=== PATIENT | female | born 1985 | race Caucasian/White ===

== ENCOUNTER 2017-12-17 09:57 | Emergency (ER) | END 2017-12-17 13:41 | disposition home or self-care (01) ==

== ENCOUNTER 2017-12-23 06:40 | Day surgery (SDC) | END 2017-12-23 11:02 | disposition home or self-care (01) ==

== ENCOUNTER 2018-11-29 15:48 | Inpatient (IN) | payer MEDICAID ==
[~2018-11-29] VITALS: Ht 160 cm; Wt 71.6 kg
[~2018-11-29 15:48] MED LIST: ACET500C5 PO
[2018-11-29 17:16] VITALS: Ht 160 cm; Wt 71.6 kg
[2018-11-29 17:17] VITALS: BP 119/81; PULSE 81; RESP 18
[2018-11-29] MEDS ORDERED: AL HYDROX/MG HYDROX/SIMETH 30 ML CUP PO PRN (19:30)
[2018-11-29] MEDS ORDERED: ACETAMINOPHEN 325 MG TAB PO PRN (19:30)
[2018-11-29] MEDS ORDERED: MAGNESIUM SULFATE 4 GM/100 ML 100 ML IV ONE (20:00)
[2018-11-29] MEDS: LACTATED RINGER'S 1,000 ML IV SCH (20:01)
--- NOTE | 2018-11-29 20:03 | HP ---
Date/Time of Note Date/Time of Note DATE: 11/29/18 TIME: 19:44 OB - History Hx of Present Free Text/Dictation 33 y.o here at triage with c/o vaginal spotting at 27w3d without any pelvic cramping pain. vaginal spotting which was pinkish only smear of pinkish discharge , but U/A shows ++2 blood and RBC 19 U/S revealed CVL is only 1.9 cx closed no funneling EFW 1033gm EDER 15.7cm admitted for preparation for possible PTB and also obtain consultation. Her care was initiated at 6w had unevenful course up to today. ADD HPV + 2007 Chief Complaint: vaaginal spotting ( hardly any) Estimated Due Date: Feb 25, 2019 : 3 Para: 1 Spontaneous : 1 Therapeutic : 0 Care: Good Care Ultrasounds: Normal mid trimester US Obstetrical Complications: None Medical Complications: None, Other (HPV pos) Past Family/Social History * Past Medical, Surgical, Family and Obstetric Histories reviewed from chart. Blood Type: A+ Rubella: immune GBS Status: Unknown HBsAG: Negative OB Admission Exam Vital Signs Vital Signs Vital Signs Date Temp Pulse Resp B/P (MAP) Pulse Ox O2 O2 Flow FiO2 Time Delivery Rate 11/29/18 98.9 81 18 119/81 Room Air 17:17 (94) Physical Exam HEENT: WNL Heart: Rhythm Normal Lungs: Clear, Equal Abdomen: WNL Extremities: Normal Reflexes: Normal Cervical Dilatation: other Effacement: Other Station: Other Membranes: Intact Amniotic Fluid: Unevaluable Heart Rate: 140's Accelerations: Accelerations Present Decelerations: No Decelerations Varibility: Moderate Contractions on Admission: None OB Assessment/Plan Other Assessment: A IUP 27w3d short cervix Hx of vaginal spotting P admit and as ordered Plan: Other (betamethasone x2 magnesium sulfate) OANH RAHMAN MD November 29, 2018 19:54
[2018-11-29] MEDS: MAGNESIUM SULFATE 20 GM/500 ML 500 ML IV SCH (20:41)
[2018-11-29] MEDS: BETAMET NA PHOS/AC(6 MG/ML) 2 ML INJ SYG IM SCH (22:48)
[2018-11-30] MEDS: LACTATED RINGER'S 1,000 ML IV SCH ×2 (07:20→19:24)
[2018-11-30] MEDS: MAGNESIUM SULFATE 20 GM/500 ML 500 ML IV SCH ×2 (07:21→17:42)
[2018-11-30] MEDS: PRENATAL VITAMIN PO SCH (09:03)
[2018-11-30] MEDS: BETAMET NA PHOS/AC(6 MG/ML) 2 ML INJ SYG IM SCH (23:22)
--- NOTE | 2018-12-01 02:17 | CONS ---
DATE OF ADMISSION: 11/29/2018 DATE OF CONSULTATION: 11/30/2018 HISTORY OF PRESENT ILLNESS: The patient is with intrauterine at 27 weeks and 4 days, prese nted with complaint of vaginal spotting which happened yesterday. Her cervical length was done and i t showed to be 1.9 cm. Currently, she is on magnesium sulfate, receiving betamethasone and she is co mfortable. This morning, one time she went to the restroom. After wiping, she had some pinkish stre aks the second time now. OBSTETRIC HISTORY: Not significant. She had a full term delivery of the first baby. PHYSICAL EXAMINATION: VITAL SIGNS: Stable. Physical exam deferred. DIAGNOSTIC DATA: Ultrasound shows no evidence of previa. Transvaginal cervical length is 1.9 cm. heart tones reassuring, irritability, no contractions. IMPRESSION: Intrauterine at 27 weeks and 4 days with labor on magnesium sulfate, r eceiving betamethasone, some spotting yesterday and some spotting today; after that, none. RECOMMENDATIONS: Continue with the magnesium sulfate 24 hours after the second dose of betamethasone , then discontinue. Follow the patient for possibly 1 more day and prior to discharging the patient, please have the patient walk bit to make sure that there is no evidence of bleeding and if all is st able, she can be discharged home with modified bed rest, labor precautions and pelvic rest an d after discharge, please send the patient to perinatology within 10 days of discharge for transvagin al cervical length. Dictated By: TEJAS NASH MD ST/NTS Conf#: [id number] DID#: [id number] CC: EDENILSON POWER MD;*EndCC*
[2018-12-01] MEDS: MAGNESIUM SULFATE 20 GM/500 ML 500 ML IV SCH ×2 (03:59→15:44)
[2018-12-01] MEDS: PRENATAL VITAMIN PO SCH (08:57)
[2018-12-01] MEDS ORDERED: DOCUSATE SODIUM 100 MG CAP PO SCH (09:00)
[2018-12-01] MEDS: LACTATED RINGER'S 1,000 ML IV SCH ×2 (15:41→23:27)
[2018-12-01] MEDS: DOCUSATE SODIUM 100 MG CAP PO SCH (21:11)
[2018-12-02] MEDS: MAGNESIUM SULFATE 20 GM/500 ML 500 ML IV SCH
[2018-12-02] MEDS: PRENATAL VITAMIN PO SCH (08:57)
[2018-12-02] MEDS: DOCUSATE SODIUM 100 MG CAP PO SCH (08:57)
--- NOTE | 2018-12-03 13:18 | DS ---
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
== END 2018-12-02 15:39 | disposition home or self-care (01) | DRG 833 ==
LOC: L-D 15:48 → OBT 15:48 → L-D 16:55 → OBT 19:26 → L-D 21:45 → PP1 12-02 00:10
PROVIDERS: ADMIT Obstetrics & Gynecology; ATTEND Obstetrics & Gynecology
DX: O26.872 Cervical shortening, second trimester (principal); O26.852 Spotting complicating pregnancy, second trimester; Z3A.27 27 weeks gestation of pregnancy
CPT/HCPCS: 76815; 76817; 76818; 80053; 81001; 83735; 85025; G0463; J0702; J3475; J7120

== ENCOUNTER 2019-02-19 08:05 | Inpatient (IN) | payer MEDICAID ==
[~2019-02-19] VITALS: Ht 162.6 cm; Wt 77.4 kg
[~2019-02-19 08:05] MED LIST changes: -ACET500C5 PO; +PREN-93 PO
[2019-02-19 08:32] VITALS: Ht 162.6 cm; Wt 77.4 kg
[2019-02-19 08:33] VITALS: BP 105/70; PULSE 80; RESP 18
--- NOTE | 2019-02-19 08:44 | PN ---
Triage Information Date/Time Reason for visit: SROM Weeks of Gestation 39.1 /Para 3/1 Objective Vital Signs Date Temp Pulse Resp B/P (MAP) Pulse Ox O2 O2 Flow FiO2 Time Delivery Rate 02/19/19 98.6 80 18 105/70 Room Air 08:33 (82) Assessment/Plan 33-year-old G3, P1 at 39 weeks and 1 day presents with complaints of leakage of fluid since 4 AM. Positive movement. 105/70 hr 82 Chronic monitor category 1 RN advised on ROM plus evaluation for leakage of fluid shift the ROM plus to be negative, the patient will be discharged home with follow-up for routine care on 02/20/2019. advised on kick counts, leakage of fluid and vaginal bleeding as well as decreased or absent movement MILESTONE,PRANAV GUAN Feb 19, 2019 08:44
--- NOTE | 2019-02-19 10:19 | TRIAGE ---
OB Triage Datetime Report Generated by CPN: 02/19/2019 10:18 Datetime: 02/19/2019 09:22 Vaginal Exam Membrane Status: Ruptured Datetime: 02/19/2019 08:57 Stage of : OB Triage Maternal Assessment Level of Consciousness: Keenly Alert, Responsive Labor Evaluation Frequency: 2UC Monitor Mode: External Duration (sec)2399: 80-160 Quality: Mild Resting Tone [place]: Relaxed Heart Rate FHR Baseline Rate: 135 Monitor Mode: External US Variability: Moderate 6-25 bpm Accelerations: 15X15 Decelerations: None Category: Category I Pain Assessment Pain Scale: 0 Pain Goal: 3 Vaginal Exam Membrane Status: Intact Vaginal Bleeding: None Datetime: 02/19/2019 08:29 Assessment Type: Triage Maternal Assessment Level of Consciousness: Keenly Alert, Responsive DTR's/Clonus: DTRs 2+; No Clonus Headache: Denies Blurred Vision: No Respiratory Effort: Unlabored; Regular Rhythm; Equal Expansion Breath Sounds, Left: Clear and Equal Breath Sounds, Right: Clear and Equal Nausea/Vomiting: Denies RUQ Epigastric Pain: Denies Lower Extremities Edema: None Degree: None Upper Extremities Edema: None Degree: None Facial Edema: None Fall Risk Assessment History of Falling: (0) No Secondary Diagnosis: (0) No Ambulatory Aid: (0) Bedrest/Nurse Assist IV Therapy: (0) No Gait: (0) Normal/Bedrest/Immobile Mental Status: (0) Oriented to Own Ability Fall Score: 0 Fall Risk Score Definition: No Risk: No action required Datetime: 02/19/2019 08:28 Time of Arrival: 02/19/2019 07:59 EGA: 39.1 Arrived By: Ambulatory Arrived From: Home Chief Complaint: pt. here C/O LEAKING X 1 OCCURENCE Movement: Present Contractions: Denies/Absent Rupture of Membranes: Denies Vaginal Bleeding: None Vaginal Discharge: Denies Recent Sexual Intercouse: Yes Abdominal Trauma: Not Applicable Patient Complaints: None Time Provider Notified: 02/19/2019 08:38 Provider Notified: MILESTONE Initial Plan: EFM/SVE Datetime: 12/02/2018 12:47 Maternal Assessment Level of Consciousness: Fully Conscious Headache: Denies Blurred Vision: No Respiratory Effort: Unlabored Nausea/Vomiting: Denies RUQ Epigastric Pain: Denies Resting Tone [place]: Relaxed Contraction Comments: none Pain Presence: None/Denies Vaginal Exam Membrane Status: Intact Vaginal Bleeding: None Datetime: 12/02/2018 12:00 Stage of : Antepartum Maternal Assessment Level of Consciousness: Fully Conscious Headache: Denies Nausea/Vomiting: Denies RUQ Epigastric Pain: Denies Labor Evaluation Frequency: 0/hr Monitor Mode: External Pain Presence: None/Denies Vaginal Bleeding: None Datetime: 12/02/2018 11:00 Stage of : Antepartum Maternal Assessment Level of Consciousness: Fully Conscious Headache: Denies Nausea/Vomiting: Denies RUQ Epigastric Pain: Denies Labor Evaluation Frequency: 0/hr Monitor Mode: External Comments: nst q shift 27.6 Pain Presence: None/Denies Vaginal Exam Membrane Status: Intact Vaginal Bleeding: None Datetime: 12/02/2018 10:10 Heart Rate FHR Baseline Rate: 130 Monitor Mode: External US Variability: Moderate 6-25 bpm Accelerations: 15X15 Decelerations: None Datetime: 12/02/2018 10:01 Labor Evaluation Frequency: 0/hr w/ irrit. Monitor Mode: External Resting Tone [place]: Relaxed Heart Rate FHR Baseline Rate: 125 Monitor Mode: External US Variability: Moderate 6-25 bpm Accelerations: 10X10 Comments: ega 27.6 Datetime: 12/02/2018 09:00 Stage of : Antepartum Maternal Assessment Level of Consciousness: Fully Conscious Headache: Denies Nausea/Vomiting: Denies RUQ Epigastric Pain: Denies Labor Evaluation Frequency: 0/hr Monitor Mode: External Resting Tone [place]: Relaxed Comments: ega 27.6 Pain Presence: None/Denies Vaginal Exam Membrane Status: Intact Vaginal Bleeding: None Datetime: 12/02/2018 08:49 Maternal Assessment Level of Consciousness: Fully Conscious Respiratory Effort: Unlabored Pain Presence: None/Denies Datetime: 12/02/2018 08:00 Stage of : Antepartum Maternal Assessment Level of Consciousness: Fully Conscious Headache: Denies Blurred Vision: No Respiratory Effort: Unlabored Nausea/Vomiting: Denies RUQ Epigastric Pain: Denies Temperature Route: Oral Resting Tone [place]: Relaxed Pain Presence: None/Denies Vaginal Exam Membrane Status: Intact Vaginal Bleeding: None Datetime: 12/02/2018 07:17 Stage of : Antepartum Monitor Mode: External Resting Tone [place]: Relaxed Pain Assessment Pain Scale: 0 Pain Presence: None/Denies Pain Assessment Comments: pt. denies any S_S of ptl at this time Datetime: 12/02/2018 07:15 Stage of : Antepartum Datetime: 12/02/2018 06:57 Labor Evaluation Frequency: NONE Monitor Mode: External Resting Tone [place]: Relaxed Pain Presence: None/Denies Pain Type: N/A Datetime: 12/02/2018 06:00 Labor Evaluation Frequency: NONE Monitor Mode: External Resting Tone [place]: Relaxed Pain Presence: None/Denies Pain Type: N/A Datetime: 12/02/2018 05:00 Labor Evaluation Frequency: NONE Monitor Mode: External Resting Tone [place]: Relaxed Pain Presence: None/Denies Pain Type: N/A Datetime: 12/02/2018 04:24 Stage of : Antepartum Temperature Route: Oral Pain Presence: None/Denies Pain Type: N/A Datetime: 12/02/2018 04:00 Labor Evaluation Frequency: NONE Monitor Mode: External Resting Tone [place]: Relaxed Pain Presence: None/Denies Pain Type: N/A Pain Assessment Comments: PT DENIES ANY NEEDS AT THIS TIME Datetime: 12/02/2018 03:00 Labor Evaluation Frequency: NONE Monitor Mode: External Resting Tone [place]: Relaxed Datetime: 12/02/2018 02:00 Labor Evaluation Frequency: NONE Monitor Mode: External Resting Tone [place]: Relaxed Pain Presence: None/Denies Pain Type: N/A Pain Assessment Comments: PT SLEEPING WITH EVEN UNLABORED BREATHING Datetime: 12/02/2018 01:00 Labor Evaluation Frequency: NONE Monitor Mode: External Resting Tone [place]: Relaxed Pain Presence: None/Denies Pain Type: N/A Datetime: 12/02/2018 00:11 Pain Presence: None/Denies Pain Assessment Comments: PT TRANSFERRED TO ROOM 310 B VIA W/C FROM LR12 IN L _ D. PT CARE ASSUMED . Datetime: 12/01/2018 23:50 Comments: Pt off monitor - Transfer to room 310. Datetime: 12/01/2018 23:45 Comments: US off - NST Q shift. Datetime: 12/01/2018 23:00 Stage of : Antepartum Labor Evaluation Frequency: None Monitor Mode: External Heart Rate FHR Baseline Rate: 120 Monitor Mode: External US FHR Baseline Changes: No Baseline Change Variability: Moderate 6-25 bpm Accelerations: 15X15 Decelerations: None Category: Category I Comments: WNL for GA Datetime: 12/01/2018 22:50 Monitor Mode: External US Datetime: 12/01/2018 22:00 Stage of : Antepartum Labor Evaluation Frequency: None Monitor Mode: External Heart Rate FHR Baseline Rate: 120 Monitor Mode: External US FHR Baseline Changes: No Baseline Change Variability: Moderate 6-25 bpm Accelerations: 15X15 Decelerations: None Category: Category I Comments: WNL for GA Datetime: 12/01/2018 21:00 Stage of : Antepartum Labor Evaluation Frequency: None Monitor Mode: External Heart Rate FHR Baseline Rate: 120 Monitor Mode: External US FHR Baseline Changes: No Baseline Change Variability: Moderate 6-25 bpm Accelerations: 15X15 Decelerations: None Comments: WNL for GA Datetime: 12/01/2018 20:20 Stage of : Antepartum Datetime: 12/01/2018 20:12 Monitor Mode: External US Datetime: 12/01/2018 20:00 Stage of : Antepartum Labor Evaluation Frequency: None Monitor Mode: External Heart Rate FHR Baseline Rate: 120 Monitor Mode: External US FHR Baseline Changes: No Baseline Change Variability: Moderate 6-25 bpm Accelerations: 15X15 Decelerations: None Category: Category I Comments: WNL for GA Datetime: 12/01/2018 19:32 Stage of : Antepartum Assessment Type: Ongoing Assessment Maternal Assessment Level of Consciousness: Fully Conscious DTR's/Clonus: DTRs 2+; No Clonus Headache: Denies Blurred Vision: No Respiratory Effort: Unlabored; Regular Rhythm; Equal Expansion Breath Sounds, Left: Clear and Equal Breath Sounds, Right: Clear and Equal Nausea/Vomiting: Denies RUQ Epigastric Pain: Denies Lower Extremities Edema: None Degree: None Upper Extremities Edema: None Degree: None Facial Edema: None Temperature Route: Oral Fall Risk Assessment History of Falling: (0) No Secondary Diagnosis: (0) No Ambulatory Aid: (0) Bedrest/Nurse Assist IV Therapy: (0) No Gait: (0) Normal/Bedrest/Immobile Mental Status: (0) Oriented to Own Ability Fall Score: 0 Fall Risk Score Definition: No Risk: No action required Datetime: 12/01/2018 19:31 Monitor Mode: External US Datetime: 12/01/2018 19:00 Stage of : Antepartum Labor Evaluation Frequency: 0 Monitor Mode: External Resting Tone [place]: Relaxed Heart Rate FHR Baseline Rate: 120 Monitor Mode: External US FHR Baseline Changes: No Baseline Change Variability: Moderate 6-25 bpm Accelerations: 10X10 Decelerations: None Category: Category I Pain Assessment Pain Scale: 0 Pain Presence: None/Denies Pain Type: N/A Datetime: 12/01/2018 18:02 Stage of : Antepartum Labor Evaluation Frequency: 0 Monitor Mode: External Resting Tone [place]: Relaxed Heart Rate FHR Baseline Rate: 120 Monitor Mode: External US FHR Baseline Changes: No Baseline Change Variability: Moderate 6-25 bpm Accelerations: 10X10 Decelerations: None Category: Category I Pain Assessment Pain Scale: 0 Pain Presence: None/Denies Pain Type: N/A Datetime: 12/01/2018 17:00 Stage of : Antepartum Maternal Assessment Level of Consciousness: Fully Conscious DTR's/Clonus: DTRs 2+; No Clonus Headache: Denies Breath Sounds, Left: Clear and Equal Breath Sounds, Right: Clear and Equal Nausea/Vomiting: Denies RUQ Epigastric Pain: Denies Labor Evaluation Frequency: 0 Monitor Mode: External Resting Tone [place]: Relaxed Heart Rate FHR Baseline Rate: 120 Monitor Mode: External US FHR Baseline Changes: No Baseline Change Variability: Moderate 6-25 bpm Accelerations: 10X10 Decelerations: None Category: Category I Pain Assessment Pain Scale: 0 Pain Presence: None/Denies Pain Type: N/A Datetime: 12/01/2018 16:00 Stage of : Antepartum Labor Evaluation Frequency: 0 Monitor Mode: External Resting Tone [place]: Relaxed Heart Rate FHR Baseline Rate: 120 Monitor Mode: External US FHR Baseline Changes: No Baseline Change Variability: Moderate 6-25 bpm Accelerations: 10X10 Decelerations: None Category: Category I Pain Assessment Pain Scale: 0 Pain Presence: None/Denies Pain Type: N/A Datetime: 12/01/2018 15:00 Stage of : Antepartum Labor Evaluation Frequency: 0 Monitor Mode: External Resting Tone [place]: Relaxed Heart Rate FHR Baseline Rate: 120 Monitor Mode: External US FHR Baseline Changes: No Baseline Change Variability: Moderate 6-25 bpm Accelerations: 10X10 Decelerations: None Category: Category I Pain Assessment Pain Scale: 0 Pain Presence: None/Denies Pain Type: N/A Datetime: 12/01/2018 13:55 Monitor Mode: External Resting Tone [place]: Relaxed Contraction Comments: uterine irritability noted per toco Heart Rate FHR Baseline Rate: 120 Monitor Mode: External US FHR Baseline Changes: No Baseline Change Variability: Moderate 6-25 bpm Accelerations: 10X10 Decelerations: None Category: Category I Datetime: 12/01/2018 13:00 Stage of : Antepartum Maternal Assessment Level of Consciousness: Fully Conscious DTR's/Clonus: DTRs 2+; No Clonus Headache: Denies Breath Sounds, Left: Clear and Equal Breath Sounds, Right: Clear and Equal Nausea/Vomiting: Denies RUQ Epigastric Pain: Denies Labor Evaluation Frequency: 0 Monitor Mode: External Resting Tone [place]: Relaxed Heart Rate FHR Baseline Rate: 120 Monitor Mode: External US FHR Baseline Changes: No Baseline Change Variability: Moderate 6-25 bpm Accelerations: 10X10 Decelerations: None Category: Category I Pain Assessment Pain Scale: 0 Pain Presence: None/Denies Pain Type: N/A Datetime: 12/01/2018 12:00 Stage of : Antepartum Labor Evaluation Frequency: 0 Monitor Mode: External Resting Tone [place]: Relaxed Contraction Comments: pt denies feeling ctx's Heart Rate FHR Baseline Rate: 120 Monitor Mode: External US FHR Baseline Changes: No Baseline Change Variability: Moderate 6-25 bpm Accelerations: 10X10 Decelerations: None Category: Category I Pain Assessment Pain Scale: 0 Pain Presence: None/Denies Pain Type: N/A Datetime: 12/01/2018 11:00 Stage of : Antepartum Labor Evaluation Frequency: 0 Monitor Mode: External Resting Tone [place]: Relaxed Heart Rate FHR Baseline Rate: 120 Monitor Mode: External US FHR Baseline Changes: No Baseline Change Variability: Moderate 6-25 bpm Accelerations: 10X10 Decelerations: None Category: Category I Pain Assessment Pain Scale: 0 Pain Presence: None/Denies Pain Type: N/A Datetime: 12/01/2018 10:28 Stage of : Antepartum Maternal Assessment Level of Consciousness: Fully Conscious DTR's/Clonus: DTRs 2+; No Clonus Headache: Denies Breath Sounds, Left: Clear and Equal Breath Sounds, Right: Clear and Equal Nausea/Vomiting: Denies RUQ Epigastric Pain: Denies Datetime: 12/01/2018 10:00 Stage of : Antepartum Labor Evaluation Frequency: 0 Monitor Mode: External Resting Tone [place]: Relaxed Heart Rate FHR Baseline Rate: 120 Monitor Mode: External US FHR Baseline Changes: No Baseline Change Variability: Moderate 6-25 bpm Accelerations: 10X10 Decelerations: None Category: Category I Pain Assessment Pain Scale: 0 Pain Presence: None/Denies Pain Type: N/A Datetime: 12/01/2018 09:00 Stage of : Antepartum Labor Evaluation Frequency: 0 Monitor Mode: External Resting Tone [place]: Relaxed Contraction Comments: pt denies feeling ctx's Heart Rate FHR Baseline Rate: 120 Monitor Mode: External US Variability: Moderate 6-25 bpm Accelerations: None Decelerations: None Category: Category I Datetime: 12/01/2018 08:00 Stage of : Antepartum Monitor Mode: External Resting Tone [place]: Relaxed Contraction Comments: uterine irritability noted Heart Rate FHR Baseline Rate: 120 Monitor Mode: External US Variability: Moderate 6-25 bpm Accelerations: 15X15 Decelerations: None Category: Category I Datetime: 12/01/2018 07:22 Stage of : Antepartum Assessment Type: Ongoing Assessment Maternal Assessment Level of Consciousness: Fully Conscious DTR's/Clonus: DTRs 2+; No Clonus Headache: Denies Blurred Vision: No Respiratory Effort: Unlabored; Regular Rhythm; Equal Expansion Breath Sounds, Left: Clear and Equal Breath Sounds, Right: Clear and Equal Nausea/Vomiting: Denies RUQ Epigastric Pain: Denies Lower Extremities Edema: None Degree: None Upper Extremities Edema: None Degree: None Facial Edema: None Temperature Route: Oral Fall Risk Assessment History of Falling: (0) No Secondary Diagnosis: (0) No Ambulatory Aid: (0) Bedrest/Nurse Assist IV Therapy: (20) Yes Gait: (0) Normal/Bedrest/Immobile Mental Status: (0) Oriented to Own Ability Fall Score: 20 Fall Risk Score Definition: No Risk: No action required Monitor Mode: External Monitor Mode: External US Pain Assessment Pain Scale: 0 Pain Presence: None/Denies Pain Type: N/A Pain Goal: 0 Datetime: 12/01/2018 07:00 Labor Evaluation Frequency: IRRITABILITY Monitor Mode: External Resting Tone [place]: Relaxed Heart Rate FHR Baseline Rate: 115 Monitor Mode: External US Variability: Moderate 6-25 bpm Accelerations: 15X15 Decelerations: None Datetime: 12/01/2018 06:00 Labor Evaluation Frequency: IRRITABILITY Monitor Mode: External Quality: Moderate Resting Tone [place]: Relaxed Heart Rate FHR Baseline Rate: 115 Monitor Mode: External US Variability: Moderate 6-25 bpm Accelerations: 15X15 Decelerations: None Category: Category I Datetime: 12/01/2018 05:00 Labor Evaluation Frequency: IRRITABILITY Monitor Mode: External Quality: Mild Resting Tone [place]: Relaxed Heart Rate FHR Baseline Rate: 115 Monitor Mode: External US Variability: Moderate 6-25 bpm Accelerations: 15X15 Decelerations: None Category: Category I Datetime: 12/01/2018 04:28 Stage of : Antepartum Temperature Route: Oral Datetime: 12/01/2018 04:00 Labor Evaluation Frequency: NONE Monitor Mode: External Resting Tone [place]: Relaxed Heart Rate FHR Baseline Rate: 115 Monitor Mode: External US Variability: Moderate 6-25 bpm Accelerations: 15X15 Decelerations: None Category: Category I Datetime: 12/01/2018 03:00 Labor Evaluation Frequency: NONE Monitor Mode: External Resting Tone [place]: Relaxed Heart Rate FHR Baseline Rate: 115 Monitor Mode: External US Variability: Moderate 6-25 bpm Accelerations: 15X15 Decelerations: None Datetime: 12/01/2018 02:00 Labor Evaluation Frequency: NONE Monitor Mode: External Resting Tone [place]: Relaxed Heart Rate FHR Baseline Rate: 115 Monitor Mode: External US Variability: Moderate 6-25 bpm Accelerations: 15X15 Decelerations: None Comments: SOME LOSS OF CONTACT DUE TO PT TURNING TO SIDE TO SLEEP Datetime: 12/01/2018 01:00 Labor Evaluation Frequency: IRRITABILITY Monitor Mode: External Quality: Mild Resting Tone [place]: Relaxed Heart Rate FHR Baseline Rate: 115 Monitor Mode: External US Variability: Moderate 6-25 bpm Accelerations: 15X15 Decelerations: None Datetime: 12/01/2018 00:22 Temperature Route: Oral Datetime: 12/01/2018 00:00 Labor Evaluation Frequency: IRRITABILITY Monitor Mode: External Quality: Mild Resting Tone [place]: Relaxed Heart Rate FHR Baseline Rate: 115 Monitor Mode: External US Variability: Moderate 6-25 bpm Accelerations: 15X15 Decelerations: None Datetime: 11/30/2018 23:00 Labor Evaluation Frequency: X2 IN ONE HOUR Monitor Mode: External Quality: Mild Resting Tone [place]: Relaxed Heart Rate FHR Baseline Rate: 120 Monitor Mode: External US Variability: Moderate 6-25 bpm Accelerations: 15X15 Decelerations: None Category: Category I Datetime: 11/30/2018 22:00 Labor Evaluation Frequency: IRRITABILITY NOTED Monitor Mode: External Quality: Mild Heart Rate FHR Baseline Rate: 120 Monitor Mode: External US Variability: Moderate 6-25 bpm Accelerations: 15X15 Decelerations: None Category: Category I Datetime: 11/30/2018 21:00 Labor Evaluation Frequency: NONE Monitor Mode: External Resting Tone [place]: Relaxed Heart Rate FHR Baseline Rate: 120 Monitor Mode: External US Variability: Moderate 6-25 bpm Accelerations: 15X15 Decelerations: None Category: Category I Datetime: 11/30/2018 20:00 Labor Evaluation Frequency: X2 IN ONE HOUR; IRRITABILITY ALSO NOTED Monitor Mode: External Duration (sec)2399: 60-90 Quality: Mild Resting Tone [place]: Relaxed Contraction Comments: PT DENIES FEELING UC'S Heart Rate FHR Baseline Rate: 115 Monitor Mode: External US Variability: Moderate 6-25 bpm Accelerations: 15X15 Decelerations: None Datetime: 11/30/2018 19:26 Assessment Type: Ongoing Assessment Maternal Assessment Level of Consciousness: Fully Conscious DTR's/Clonus: DTRs 2+; No Clonus Headache: Denies Blurred Vision: No Respiratory Effort: Unlabored; Regular Rhythm; Equal Expansion Breath Sounds, Left: Clear and Equal Breath Sounds, Right: Clear and Equal Nausea/Vomiting: Denies RUQ Epigastric Pain: Denies Lower Extremities Edema: None Degree: None Upper Extremities Edema: None Degree: None Facial Edema: None Temperature Route: Oral Fall Risk Assessment History of Falling: (0) No Secondary Diagnosis: (0) No Ambulatory Aid: (0) Bedrest/Nurse Assist IV Therapy: (20) Yes Gait: (0) Normal/Bedrest/Immobile Mental Status: (0) Oriented to Own Ability Fall Score: 20 Fall Risk Score Definition: No Risk: No action required Pain Assessment Pain Scale: 0 Pain Presence: None/Denies Pain Type: N/A Pain Goal: 3 Datetime: 11/30/2018 18:30 Labor Evaluation Frequency: x1 Monitor Mode: External Duration (sec)2399: 50 Quality: Mild Resting Tone [place]: Relaxed Heart Rate FHR Baseline Rate: 120 Monitor Mode: External US FHR Baseline Changes: No Baseline Change Variability: Moderate 6-25 bpm Accelerations: 15X15 Decelerations: None Category: Category I Datetime: 11/30/2018 17:31 Assessment Type: Ongoing Assessment Maternal Assessment Level of Consciousness: Fully Conscious DTR's/Clonus: DTRs 2+; No Clonus Headache: Denies Blurred Vision: No Labor Evaluation Frequency: none Monitor Mode: External Resting Tone [place]: Relaxed Heart Rate FHR Baseline Rate: 120 Monitor Mode: External US FHR Baseline Changes: No Baseline Change Variability: Moderate 6-25 bpm Accelerations: 15X15 Decelerations: None Category: Category I Datetime: 11/30/2018 16:30 Labor Evaluation Frequency: x1 Monitor Mode: External Duration (sec)2399: 70 Quality: Mild Resting Tone [place]: Relaxed Heart Rate FHR Baseline Rate: 120 Monitor Mode: External US FHR Baseline Changes: No Baseline Change Variability: Minimal - Undetectable to <=5 bpm Accelerations: 15X15 Decelerations: None Category: Category II Datetime: 11/30/2018 16:28 Pain Assessment Pain Scale: 0 Pain Presence: None/Denies Pain Type: N/A Datetime: 11/30/2018 15:30 Assessment Type: Ongoing Assessment Maternal Assessment Level of Consciousness: Fully Conscious DTR's/Clonus: DTRs 2+; No Clonus Headache: Denies Blurred Vision: No Respiratory Effort: Unlabored Breath Sounds, Left: Clear and Equal Breath Sounds, Right: Clear and Equal Labor Evaluation Frequency: x1 Monitor Mode: External Duration (sec)2399: 60 Quality: Mild Resting Tone [place]: Relaxed Contraction Comments: uterine irritability noted Heart Rate FHR Baseline Rate: 120 Monitor Mode: External US FHR Baseline Changes: No Baseline Change Variability: Moderate 6-25 bpm Accelerations: 15X15 Decelerations: None Category: Category I Datetime: 11/30/2018 14:30 Labor Evaluation Frequency: x1 Monitor Mode: External Duration (sec)2399: 50 Quality: Mild Resting Tone [place]: Relaxed Heart Rate FHR Baseline Rate: 115 Monitor Mode: External US FHR Baseline Changes: No Baseline Change Variability: Moderate 6-25 bpm Accelerations: 15X15 Decelerations: None Category: Category I Datetime: 11/30/2018 13:30 Assessment Type: Ongoing Assessment Maternal Assessment Level of Consciousness: Fully Conscious DTR's/Clonus: DTRs 2+; No Clonus Headache: Denies Blurred Vision: No Labor Evaluation Frequency: x1 Monitor Mode: External Duration (sec)2399: 60 Quality: Mild Resting Tone [place]: Relaxed Heart Rate FHR Baseline Rate: 115 Monitor Mode: External US FHR Baseline Changes: No Baseline Change Variability: Moderate 6-25 bpm Accelerations: 15X15 Decelerations: Variable Category: Category II Datetime: 11/30/2018 12:30 Labor Evaluation Frequency: x1 Monitor Mode: External Duration (sec)2399: 60 Quality: Mild Resting Tone [place]: Relaxed Contraction Comments: uterine irritability noted Heart Rate FHR Baseline Rate: 120 Monitor Mode: External US FHR Baseline Changes: No Baseline Change Variability: Moderate 6-25 bpm Accelerations: 15X15 Decelerations: None Category: Category I Datetime: 11/30/2018 11:33 Pain Assessment Pain Scale: 0 Pain Presence: None/Denies Pain Type: N/A Datetime: 11/30/2018 11:31 Assessment Type: Ongoing Assessment Maternal Assessment Level of Consciousness: Fully Conscious DTR's/Clonus: DTRs 2+; No Clonus Headache: Denies Blurred Vision: No Respiratory Effort: Unlabored Breath Sounds, Left: Clear and Equal Breath Sounds, Right: Clear and Equal Labor Evaluation Frequency: x1 Monitor Mode: External Duration (sec)2399: 70 Quality: Mild Resting Tone [place]: Relaxed Contraction Comments: uterine irritability noted Heart Rate FHR Baseline Rate: 120 Monitor Mode: External US FHR Baseline Changes: No Baseline Change Variability: Minimal - Undetectable to <=5 bpm Accelerations: Prolonged Decelerations: None Category: Category II Datetime: 11/30/2018 10:27 Labor Evaluation Frequency: none Monitor Mode: External Resting Tone [place]: Relaxed Contraction Comments: uterine irritability noted Heart Rate FHR Baseline Rate: 120 Monitor Mode: External US FHR Baseline Changes: No Baseline Change Variability: Minimal - Undetectable to <=5 bpm Accelerations: 15X15 Decelerations: None Category: Category II Datetime: 11/30/2018 10:00 Assessment Type: Ongoing Assessment Maternal Assessment Level of Consciousness: Fully Conscious DTR's/Clonus: DTRs 2+; No Clonus Headache: Denies Blurred Vision: No Datetime: 11/30/2018 09:30 Labor Evaluation Frequency: x1 Monitor Mode: External Duration (sec)2399: 50 Quality: Mild Resting Tone [place]: Relaxed Heart Rate FHR Baseline Rate: 120 Monitor Mode: External US FHR Baseline Changes: No Baseline Change Variability: Minimal - Undetectable to <=5 bpm Accelerations: 15X15 Decelerations: Variable Category: Category II Datetime: 11/30/2018 08:30 Labor Evaluation Frequency: x2 Monitor Mode: External Duration (sec)2399: 60 Quality: Mild Resting Tone [place]: Relaxed Contraction Comments: pt denies feeling UCs, uterine irritability Heart Rate FHR Baseline Rate: 125 Monitor Mode: External US FHR Baseline Changes: No Baseline Change Variability: Moderate 6-25 bpm Accelerations: 15X15 Decelerations: None Category: Category I Datetime: 11/30/2018 08:00 Assessment Type: Ongoing Assessment Maternal Assessment Level of Consciousness: Fully Conscious DTR's/Clonus: DTRs 2+; No Clonus Headache: Denies Blurred Vision: No Respiratory Effort: Unlabored; Regular Rhythm; Equal Expansion Breath Sounds, Left: Clear and Equal Breath Sounds, Right: Clear and Equal Nausea/Vomiting: Denies RUQ Epigastric Pain: Denies Lower Extremities Edema: None Degree: None Upper Extremities Edema: None Degree: None Facial Edema: None Fall Risk Assessment History of Falling: (0) No Secondary Diagnosis: (0) No Ambulatory Aid: (0) Bedrest/Nurse Assist IV Therapy: (20) Yes Gait: (0) Normal/Bedrest/Immobile Mental Status: (0) Oriented to Own Ability Fall Score: 20 Fall Risk Score Definition: No Risk: No action required Datetime: 11/30/2018 07:30 Labor Evaluation Frequency: none Monitor Mode: External Resting Tone [place]: Relaxed Contraction Comments: uterine irritability noted Heart Rate FHR Baseline Rate: 130 Monitor Mode: External US FHR Baseline Changes: No Baseline Change Variability: Moderate 6-25 bpm Accelerations: Prolonged Decelerations: None Category: Category I Datetime: 11/30/2018 07:15 Pain Assessment Pain Scale: 0 Pain Presence: None/Denies Pain Type: N/A Datetime: 11/30/2018 07:14 Stage of : Antepartum Datetime: 11/30/2018 06:46 Labor Evaluation Frequency: occasional Monitor Mode: External Duration (sec)2399: 30-40 Quality: Mild Pattern: Normal: <= 5 Contractions in 10 Minutes Resting Tone [place]: Relaxed Heart Rate FHR Baseline Rate: 135 Monitor Mode: External US FHR Baseline Changes: No Baseline Change Variability: Moderate 6-25 bpm Accelerations: 15X15 Decelerations: None Category: Category I Datetime: 11/30/2018 05:58 Labor Evaluation Frequency: irritability Monitor Mode: External Duration (sec)2399: 30-40 Quality: Mild Pattern: Normal: <= 5 Contractions in 10 Minutes Resting Tone [place]: Relaxed Heart Rate FHR Baseline Rate: 125 Monitor Mode: External US FHR Baseline Changes: No Baseline Change Variability: Moderate 6-25 bpm Accelerations: 15X15 Decelerations: None Category: Category I Datetime: 11/30/2018 04:59 Labor Evaluation Frequency: NONE Monitor Mode: External Resting Tone [place]: Relaxed Heart Rate FHR Baseline Rate: 120 Monitor Mode: External US Variability: Moderate 6-25 bpm Accelerations: 10X10 Decelerations: None Datetime: 11/30/2018 04:00 Labor Evaluation Frequency: X1 IN ONE HOUR Monitor Mode: External Duration (sec)2399: 100 Quality: Mild Resting Tone [place]: Relaxed Contraction Comments: PT DENIES FEELING UC'S Heart Rate FHR Baseline Rate: 125 Monitor Mode: External US Variability: Moderate 6-25 bpm Accelerations: 15X15 Decelerations: None Datetime: 11/30/2018 03:13 Labor Evaluation Frequency: LOW AMPLITUDE HIGH FREQUENCY Monitor Mode: External Resting Tone [place]: Relaxed Heart Rate FHR Baseline Rate: 125 Monitor Mode: External US Variability: Marked >25 bpm Accelerations: 10X10 Decelerations: None Datetime: 11/30/2018 02:00 Labor Evaluation Frequency: none Monitor Mode: External Resting Tone [place]: Relaxed Heart Rate FHR Baseline Rate: 125 Monitor Mode: External US Variability: Moderate 6-25 bpm Accelerations: 10X10 Decelerations: None Datetime: 11/30/2018 01:00 Labor Evaluation Frequency: none Monitor Mode: External Quality: Mild Pattern: Normal: <= 5 Contractions in 10 Minutes Resting Tone [place]: Relaxed Heart Rate FHR Baseline Rate: 135 Monitor Mode: External US FHR Baseline Changes: No Baseline Change Variability: Moderate 6-25 bpm Accelerations: 15X15 Decelerations: None Category: Category I Datetime: 11/30/2018 00:00 Labor Evaluation Frequency: occasional Monitor Mode: External Quality: Mild Pattern: Normal: <= 5 Contractions in 10 Minutes Resting Tone [place]: Relaxed Heart Rate FHR Baseline Rate: 125 Monitor Mode: External US FHR Baseline Changes: No Baseline Change Variability: Moderate 6-25 bpm Accelerations: 15X15 Decelerations: None Category: Category I Datetime: 11/29/2018 22:59 Labor Evaluation Frequency: irritability Monitor Mode: External Duration (sec)2399: 20-50 Quality: Mild Pattern: Normal: <= 5 Contractions in 10 Minutes Resting Tone [place]: Relaxed Heart Rate FHR Baseline Rate: 125 Monitor Mode: External US FHR Baseline Changes: No Baseline Change Variability: Moderate 6-25 bpm Accelerations: 15X15 Decelerations: None Category: Category I Datetime: 11/29/2018 22:28 Temperature Route: Oral Datetime: 11/29/2018 22:00 Labor Evaluation Frequency: irritability Monitor Mode: External Duration (sec)2399: 30-40 Quality: Mild Pattern: Normal: <= 5 Contractions in 10 Minutes Resting Tone [place]: Relaxed Heart Rate FHR Baseline Rate: 135 Monitor Mode: External US FHR Baseline Changes: No Baseline Change Variability: Moderate 6-25 bpm Accelerations: 15X15 Decelerations: None Category: Category I Datetime: 11/29/2018 21:30 Assessment Type: Admission Assessment Vaginal Bleeding: None Maternal Assessment Level of Consciousness: Fully Conscious DTR's/Clonus: DTRs 2+; No Clonus Headache: Denies Blurred Vision: No Respiratory Effort: Unlabored; Regular Rhythm; Equal Expansion Breath Sounds, Left: Clear and Equal Breath Sounds, Right: Clear and Equal Nausea/Vomiting: Denies RUQ Epigastric Pain: Denies Facial Edema: None Fall Risk Assessment History of Falling: (0) No Secondary Diagnosis: (0) No Ambulatory Aid: (0) Bedrest/Nurse Assist Gait: (0) Normal/Bedrest/Immobile Mental Status: (0) Oriented to Own Ability Datetime: 11/29/2018 21:00 Labor Evaluation Frequency: x2 with irriability Monitor Mode: External Duration (sec)2399: 30-70 Quality: Mild Pattern: Normal: <= 5 Contractions in 10 Minutes Resting Tone [place]: Relaxed Heart Rate FHR Baseline Rate: 135 Monitor Mode: External US FHR Baseline Changes: No Baseline Change Variability: Moderate 6-25 bpm Accelerations: 15X15 Decelerations: None Category: Category I Datetime: 11/29/2018 20:00 Labor Evaluation Frequency: x1 with irritability Monitor Mode: External Duration (sec)2399: 40-70 Quality: Mild Pattern: Normal: <= 5 Contractions in 10 Minutes Resting Tone [place]: Relaxed Heart Rate FHR Baseline Rate: 135 Monitor Mode: External US FHR Baseline Changes: No Baseline Change Variability: Moderate 6-25 bpm Accelerations: 15X15 Decelerations: Variable Category: Category II Datetime: 11/29/2018 19:28 Vaginal Exam Membrane Status: Intact Datetime: 11/29/2018 18:50 Labor Evaluation Frequency: 0 Monitor Mode: External Pattern: Normal: <= 5 Contractions in 10 Minutes Resting Tone [place]: Relaxed Heart Rate FHR Baseline Rate: 140 Monitor Mode: External US Variability: Moderate 6-25 bpm Accelerations: 15X15 Decelerations: None Category: Category I Datetime: 11/29/2018 17:10 Stage of : OB Triage Time of Arrival: 11/29/2018 15:29 EGA: 27.3 Arrived By: Ambulatory Arrived From: Home Chief Complaint: pinkish discharge x1 post voiding on toilet paper Movement: Present Contractions: Denies/Absent Rupture of Membranes: Denies Vaginal Bleeding: Scant Vaginal Discharge: Present Recent Sexual Intercouse: Denies Abdominal Trauma: Not Applicable Patient Complaints: Cramping Initial Plan: efm/ BPP Maternal Assessment Level of Consciousness: Fully Conscious DTR's/Clonus: DTRs 2+; No Clonus Headache: Denies Blurred Vision: No Respiratory Effort: Unlabored; Regular Rhythm; Equal Expansion Nausea/Vomiting: Denies RUQ Epigastric Pain: Denies Lower Extremities Edema: None Degree: None Upper Extremities Edema: None Degree: None Facial Edema: None Temperature Route: Oral Fall Risk Assessment History of Falling: (0) No Secondary Diagnosis: (0) No Ambulatory Aid: (0) Bedrest/Nurse Assist IV Therapy: (0) No Gait: (0) Normal/Bedrest/Immobile Mental Status: (0) Oriented to Own Ability Fall Score: 0 Fall Risk Score Definition: No Risk: No action required Monitor Mode: External Heart Rate FHR Baseline Rate: 135 Monitor Mode: External US Pain Assessment Pain Scale: 0
--- NOTE | 2019-02-19 11:20 | HP ---
Date/Time of Note Date/Time of Note DATE: 02/19/19 TIME: 11:20 OB - History Hx of Present Free Text/Dictation History of present illness: 33-year-old G 3 P 1 at 39 week and 1 day(s) presents with plaints of leakage of fluid since 4 AM. Obstetric history: Vaginal delivery in 2007 Gynecology: Last menstrual period approximately 05/21/2018 Past medical history: HPV Surgical history: D&C 2017 Family history: Noncontributory Social history: negative for tobacco/alcohol/recreational drugs Allergies: No known drug allergies Medications: vitamins Physical exam Vitals: Stable 105/70 General: No apparent distress Cardiovascular: Regular rate and rhythm Pulmonary: Clear to auscultation bilaterally Abdomen: Gravid SVE: 2/50/floating/mid/med; cord present on right maternal Uterus: Maury's 3200 g vertex by ultrasound and leopolds Extremities: Nontender to palpation Psychological: Alert oriented EFM: Category 1 [place]: None labs: Blood type: A+ H/H: Rubella: immune HepBSAg: nonreactive RPR: NR HIV: negative GC/CT: negative GBS: negative 1h GTT: normal 83 Assessment/plan: 1. Premature rupture of membranes-admit to labor and delivery. Routine labs and vitals. Epidural upon patient request. Ultrasound with evidence of vertex presentation. Initially during her exam there was a palpable cord lateral to the head upon exam maternal right. The patient was placed in Trendelenburg with subsequent resolution of the presenting part noted by ultrasound. 2. History of short cervix-The patient was previously admitted in November 2018 for s hort cervix and received magnesium sulfate as well as corticosteroids. Past Family/Social History * Past Medical, Surgical, Family and Obstetric Histories reviewed from chart. OB Admission Exam Vital Signs Vital Signs Vital Signs Date Temp Pulse Resp B/P (MAP) Pulse Ox O2 O2 Flow FiO2 Time Delivery Rate 02/19/19 98.6 80 18 105/70 Room Air 08:33 (82) PRANAV ESPARZA MD Feb 19, 2019 11:20
[2019-02-19] MEDS ORDERED: METHYLERGONOVINE 0.2 MG INJ IM PRN (11:30)
[2019-02-19] MEDS ORDERED: CARBOPROST 250 MCG INJ IM PRN (11:30)
[2019-02-19] MEDS ORDERED: MISOPROSTOL 200 MCG TAB PR PRN (11:30)
[2019-02-19] MEDS ORDERED: OXYTOCIN 30 UNITS/LR 500 ML IV SCH ×3 (11:30)
[2019-02-19] MEDS ORDERED: OXYTOCIN 30 UNITS/LR 500 ML IV PRN (11:30)
[2019-02-19] MEDS ORDERED: LIDOCAINE 1% (MPF) 30 ML INJ INJ PRN (11:30)
[2019-02-19] MEDS ORDERED: MISOPROSTOL 50 MCG CAPSULE PO ONE (11:30)
[2019-02-19] MEDS ORDERED: MISOPROSTOL 50 MCG CAPSULE PO SCH ×2 (12:00→21:00)
[2019-02-19] MEDS: LACTATED RINGER'S 1,000 ML IV SCH (12:17)
[2019-02-19] MEDS ORDERED: LACTATED RINGER'S 1,000 ML IV PRN (23:14)
--- NOTE | 2019-02-19 23:31 | PREAC ---
Date/Time of Note Date/Time of Note DATE: 02/19/19 TIME: 23:30 Anesthesia Eval and Record Evaluation Time Pre-Procedure Interview DATE: 02/19/19 TIME: 23:30 Age 33 Sex female NPO: 8 hrs Preoperative diagnosis IUP Planned procedure L&D Epidural Past Medical History Past Medical History: Includes GI: Obesity : : Surgery & Anesthesia Issues No known issue Meds Anticoagulation: No Beta Char within 24 hr: No Reason Beta Char not given: Pt. not on B-Char Reported Medications Vit No.124/Iron/FA ( Vitamin Tablet) 1 Each Tablet, 1 EACH PO DAILY, TAB 02/19/19 Current Medications Lactated Ringer's 1,000 ml @ 125 mls/hr Q8H IV Last administered on 02/19/19at 12:17; Admin Dose 125 MLS/HR; Start 02/19/19 at 11:07 Lidocaine (Xylocaine 1% (Mpf)) 30 ml ONCE PRN INJ .EPISIOTOMY; Start 02/19/19 at 11:30 Oxytocin/Lactated Ringer's 500 ml @ 500 mls/hr ONCE POST IV ; Start 02/19/19 at 11:30 Oxytocin/Lactated Ringer's 500 ml @ 125 mls/hr POST IV ; Start 02/19/19 at 11:30 Oxytocin/Lactated Ringer's 500 ml @ 0 mls/hr ONCE PRN IV .VAGINAL BLEEDING; Start 02/19/19 at 11:30 Methylergonovine Maleate (Methergine) 0.2 mg ONCE PRN IM .VAGINAL BLEEDING; Start 02/19/19 at 11:30 Carboprost Tromethamine (Hemabate) 250 mcg ONCE PRN IM .VAGINAL BLEEDING; Start 02/19/19 at 11:30 Misoprostol (Cytotec) 1,000 mcg ONCE PRN MT .VAGINAL BLEEDING; Start 02/19/19 at 11:30 Oxytocin/Lactated Ringer's 500 ml @ 0 mls/hr FOR AUGMENTATION IV Last administered on 02/19/19at 22:34; Admin Dose 2 MLS/HR; Start 02/19/19 at 11:30 Misoprostol (Cytotec 50 Mcg Capsule) 50 mcg Q4 PO Last administered on 02/19/19at 18:20; Admin Dose 50 MCG; Start 02/19/19 at 21:00 Lactated Ringer's 1,000 ml @ 2,000 mls/hr Q30M PRN IV .ANESTHESIA; Start 02/19/19 at 23:14 Meds reviewed: Yes Allergies Coded Allergies: No Known Drug Allergy (Verified Allergy, Unknown, 12/23/17) Allergies Reviewed: Yes Labs/Studies Labs Reviewed: Reviewed by anesthesiologist Result Diagram: 02/19/19 1210 Laboratory Tests 02/19/19 12:10 Blood Bank Test 02/19/19 12:10 Antibody Screen NEGATIVE Blood Type A POSITIVE Rh Immune Globulin Candidate NO test: Positive Studies: ECG Pre-procedure Exam Last vitals Vital Signs Date Temp Pulse Resp B/P (MAP) Pulse Ox O2 O2 Flow FiO2 Time Delivery Rate 02/19/19 98.6 80 18 105/70 Room Air 08:33 (82) Airway: Adequate mouth opening, Adequate thyromental dist Mallampati: Mallampati II Teeth: Normal Lung: Normal Heart: Normal ASA Physical Status ASA physical status: 2 Emergency: None Planned Anesthetic Neuraxial: Epidural Planned Pain Management Epidural, Parenteral pain med Pre-operative Attestations Prior to commencing anesthesia and surgery, the patient was re-evaluated, there was verification of: *The patient's identity *The results of appropriate recent lab work and preoperative vital signs *The above evaluation not changing prior to induction *Anesthetic plan, risk benefits, alternative and complications discussed with patient/family; questions answered; patient/family understands, accepts and wishes to proceed. LISETH GOODWIN MD Feb 19, 2019 23:31
[2019-02-19] MEDS ORDERED: FENTAnyl 2MCG/ML-ROPIV 0.2% 100 ML ONE (23:33)
[2019-02-20] MEDS ORDERED: NALOXONE (0.4 MG/ML) INJ IV PRN
[2019-02-20] MEDS ORDERED: DIPHENHYDRAMINE 50 MG INJ IV PRN
[2019-02-20] MEDS ORDERED: ONDANSETRON 4 MG INJ IV PRN
[2019-02-20] MEDS ORDERED: FENTAnyl 2MCG/ML-ROPIV 0.2% 100 ML BAG EPI SCH
[2019-02-20] MEDS: LACTATED RINGER'S 1,000 ML IV SCH (00:17)
[2019-02-20] MEDS: OXYTOCIN 30 UNITS/LR 500 ML IV SCH ×2 (02:35→12:35)
[2019-02-20] MEDS ORDERED: LACTATED RINGER'S 1,000 ML IV* SCH (02:35)
--- NOTE | 2019-02-20 02:35 | LDN ---
Date/Time of Note Date/Time of Note DATE: 02/20/19 TIME: 02:33 Delivery Summary of a viable baby boy weighing [id number] grams or 6# 4 oz, 19" long, and with Apgars of 9/9. Weeks of Gestation 39w 2d Placenta Delivered: Spontaneously Meconium: none Episiotomy: No Perineal laceration: 0 Anesthesia type: Epidural Estimated blood loss: 150 Sponge & Needle done & correct: Yes All needle counts correct: Yes Any foreign bodies felt in the: No (vagina) Infant Delivery Information Sex Sex: male Apgars 1 Minute: 9 5 Minute: 9 Suctioning Nose & mouth suctioned at ty: Yes Delee suction performed: No Umbilical Cord Umbilical cord with: 3 Vessels Cord presentations: no nuchal cord Cord Blood was obtained: Yes Mother & Baby Disposition Disposition Mom & Baby to Maternity; Good: Yes Baby to NICU: No CRAIG MOLINA MD Feb 20, 2019 02:34
[2019-02-20] MEDS ORDERED: HYDROCODONE/APAP (5/325) TAB PO PRN (03:00)
[2019-02-20] MEDS ORDERED: OXYTOCIN 30 UNITS/LR 500 ML IV PRN (03:00)
[2019-02-20] MEDS ORDERED: LANOLIN HPA 1 PKT TOP PRN (03:00)
[2019-02-20] MEDS ORDERED: CARBOPROST 250 MCG INJ IM PRN (03:00)
[2019-02-20] MEDS ORDERED: METHYLERGONOVINE 0.2 MG INJ IM PRN (03:00)
[2019-02-20] MEDS ORDERED: MISOPROSTOL 200 MCG TAB PR PRN (03:00)
[2019-02-20 05:00] VITALS: BP 113/80; PULSE 78; RESP 18
[2019-02-20] MEDS: IBUPROFEN 600 MG TAB PO SCH ×3 (06:33→17:16)
[2019-02-20 08:00] VITALS: BP 102/58; PULSE 71; RESP 18
[2019-02-20 18:09] VITALS: BP 129/68; PULSE 72; RESP 18
[2019-02-20 20:35] VITALS: BP 116/67; PULSE 75; RESP 19
[2019-02-21] MEDS: IBUPROFEN 600 MG TAB PO SCH ×5 (00:11→23:42)
[2019-02-21 04:30] VITALS: BP 102/60; PULSE 68; RESP 19
[2019-02-21 08:00] VITALS: BP 100/61; PULSE 71; RESP 16
--- NOTE | 2019-02-21 08:31 | PAC ---
Date/Time of Note Date/Time of Note DATE: 02/21/19 TIME: 08:31 Post-Anesthesia Notes Post-Anesthesia Note Last documented vital signs Vital Signs Date Temp Pulse Resp B/P (MAP) Pulse Ox O2 O2 Flow FiO2 Time Delivery Rate 02/21/19 98.1 68 19 102/60 Room Air 04:30 (74) Activity: WNL Respiratory function: WNL Cardiovascular function: WNL Mental status: Baseline Pain reasonably controlled: Yes Hydration appropriate: Yes Nausea/Vomiting absent: Yes Comments BP:112/67, P;78, Spo2:100%, T:98,9 LISETH GOODWIN MD Feb 21, 2019 08:31
[2019-02-21] MEDS ORDERED: ONDANSETRON 4 MG INJ IV PRN (09:00)
[2019-02-21] MEDS ORDERED: morphine 2 MG INJ IV PRN (09:00)
[2019-02-21] MEDS ORDERED: NALOXONE (0.4 MG/ML) INJ IV PRN (09:00)
[2019-02-21] MEDS ORDERED: DIPHENHYDRAMINE 50 MG INJ IV PRN (09:00)
[2019-02-21] MEDS ORDERED: KETOROLAC 30 MG INJ IV PRN (09:00)
[2019-02-21 15:30] VITALS: BP 106/59; PULSE 83; RESP 16
--- NOTE | 2019-02-21 16:38 | PN ---
Date/Time of Note Date/Time of Note DATE: 02/21/19 TIME: 16:36 OB Subjective Subjective Subjective PPD# 1 Patient is doing well. She denies nausea, vomiting, shortness of breath, chest pain, headache. She has been ambulating without difficulty, tolerating regular diet. Pain is well controlled on current medications OB Objective Objective Objective Vital Signs Date Temp Pulse Resp B/P (MAP) Pulse Ox O2 O2 Flow FiO2 Time Delivery Rate 02/21/19 98.4 71 16 100/61 Room Air 08:00 (74) General: AAO X 3, comfortable, NAD, appropriate mood and affect. ABD: +BS. Soft, non-tender. Uterus 2 cm below umbilicus Flank: No CVA tenderness (B/L) LE: Mild edema. No clubbing, cyanosis, thigh or calf tenderness (B/L). Homans 'sign is negative OB Assessment/Plan Other plan: 33 years old -0-1-2 s/p normal vaginal delivery at 39 weeks and 2 days. PPD#1 - AF, VSS - Baby is doing well, at bed side. She is bonding well - Contraception methods with R/B/A/FR discussed - Continue care - hgb: 11.6 - Discharge home tomorrow - Rx and instruction given - Follow up in 2 and 6 weeks at clinic EDENILSON POWER Feb 21, 2019 16:38
--- NOTE | 2019-02-21 16:39 | DS ---
Date/Time of Note Date/Time of Note DATE: 02/21/19 TIME: 16:38 Obstetrical Discharge Record Final Diagnosis Final Diagnosis: Term delivered Other Final Diagnosis 33 years old -0-1-2 s/p normal vaginal delivery at 39 weeks and 2 days. PPD#1. course was unremarkable. She is ambulating and tolerating regular diet. She is voiding without difficulty. Pain is controlled on current medication. - AF, VSS - Baby is doing well, at bed side. She is bonding well - Contraception methods with R/B/A/FR discussed - Continue care - Discharge home tomorrow - Rx and instruction given - Follow up in 2 and 6 weeks at clinic Vaginal Delivery Obstetrical Delivery: Spontaneous Condition on Discharge Physical Assessment Voiding: Yes Bowel Movement: Yes Breast: Soft, non-tender Fundus: Firm Calf Tenderness: No Patient Condition: Stable EDENILSON POWER Feb 21, 2019 16:39
[2019-02-21 20:15] VITALS: BP 114/77; PULSE 79; RESP 18
[2019-02-22 03:45] VITALS: BP 110/69; PULSE 75; RESP 19
[2019-02-22] MEDS: IBUPROFEN 600 MG TAB PO SCH ×2 (05:39→12:00)
[2019-02-22 08:00] VITALS: BP 102/61; PULSE 72; RESP 18
[2019-02-22] MEDS ORDERED: DIPHTH/TET/ACEL PERTUSS (ADULT) 0.5 ML VIAL IM* ONE (09:00)
== END 2019-02-22 14:53 | disposition home or self-care (01) | DRG 807 ==
LOC: OBT 08:05 → L-D 08:06 → OBT 10:45 → L-D 10:49 → PP1 02-20 04:37
PROVIDERS: ADMIT Obstetrics & Gynecology; ATTEND Obstetrics & Gynecology
PROC: 10E0XZZ Delivery of Products of Conception, External Approach (ICD-10-PCS; principal; 2019-02-20)
PROC: 3E033VJ Introduction of Other Hormone into Peripheral Vein, Percutaneous Approach (ICD-10-PCS; 2019-02-20)
DX: O99.214 Obesity complicating childbirth (principal); Z37.0 Single live birth; Z3A.39 39 weeks gestation of pregnancy
CPT/HCPCS: 62322; 76815; 84112; 85025; 85610; 85730; 86592; 86850; 86900; 86901; G0463; J2590; J3010; J7120